=== PATIENT | female | born 1945 | race Caucasian/White ===

== ENCOUNTER 2021-11-09 09:58 | Day surgery (SDC) | payer MEDICARE, OTHER ==
[~2021-11-09] VITALS: Ht 167.6 cm; Wt 104.5 kg
[~2021-11-09 09:58] MED LIST: ACET325 PO; ASPI81CH PO; IRBHYD300; Levothyroxine200 MCG PO; METO100ER PO; MIRALAX17 GM PO; OMEPRAZOLE MAGN20 MG PO; Percocet 5-3251 EACH PO; TRIHYD253B; Triamterene W/1 EACH PO; Vitamin D400 UNI1
== END 2021-11-09 12:28 | disposition home or self-care (01) ==
LOC: ORSCSDS 09:58
PROVIDERS: Surgery
PROC: 0DBH8ZX Excision of Cecum, Via Natural or Artificial Opening Endoscopic, Diagnostic (ICD-10-PCS; principal; 2021-11-09 12:00)
PROC: 0DBN8ZX Excision of Sigmoid Colon, Via Natural or Artificial Opening Endoscopic, Diagnostic (ICD-10-PCS; principal; 2021-11-09 12:00)
PROC: 0DBL8ZX Excision of Transverse Colon, Via Natural or Artificial Opening Endoscopic, Diagnostic (ICD-10-PCS; principal; 2021-11-09 12:00)
DX: R93.5 Abnormal findings on diagnostic imaging of other abdominal regions, including retroperitoneum (principal); R10.31 Right lower quadrant pain; D12.0 Benign neoplasm of cecum; D12.3 Benign neoplasm of transverse colon; D12.5 Benign neoplasm of sigmoid colon; K63.5 Polyp of colon; I10 Essential (primary) hypertension; E03.9 Hypothyroidism, unspecified; Z79.899 Other long term (current) drug therapy
CPT/HCPCS: 88305; J0461; J2405; J2704; J7120

== ENCOUNTER → 2022-02-13 | Outpatient (CLI) | payer MEDICARE, OTHER | END | disposition home or self-care (01) | LOC: LAB SHORT 11:13 → PLD 11:13 | DX: D48.5 Neoplasm of uncertain behavior of skin (principal) | CPT/HCPCS: 88305 ==

== ENCOUNTER 2023-12-14 16:29 | Observation (INO) | payer MEDICARE, OTHER ==
[~2023-12-14] VITALS: Ht 167.6 cm; Wt 109.0 kg
[~2023-12-14 16:29] MED LIST changes: +ELIQUIS2.5 MG PO; +Toprol Xl25 MG PO
[2023-12-14 17:21] LABS: BASOPHILS ABSOLUTE AUTO 0.05 K/mm3 (0.00-0.23); BASOPHILS PERCENT AUTO 1 % (0-2); EOSINOPHILS PERCENT AUTO 3 % (0-6); Hematocrit 40.1 % (33.0-51.0); Hemoglobin 13.4 g/dL (11.5-16.0); IMMATURE GRAN ABSOLUTE AUTO 0.03 K/mm3 (0.00-0.10); IMMATURE GRAN PERCENT AUTO 1 % (0-1); LYMPHOCYTES ABSOLUTE AUTO 0.99 K/mm3 (0.84-5.20); LYMPHOCYTES PERCENT AUTO 17 % (21-46); MONOCYTES ABSOLUTE AUTO 0.51 K/mm3 (0.16-1.47); MONOCYTES PERCENT AUTO 9 % (4-13); Mean Corpuscular HGB 31.1 pg (26.0-34.0); Mean Corpuscular HGB Conc 33.4 g/dL (31.5-36.5); Mean Corpuscular Volume 93 fL (80-100); Mean Platelet Volume 10.8 fL (9.1-12.4); NEUTROPHILS ABSOLUTE AUTO 4.12 K/mm3 (1.96-9.15); NEUTROPHILS PERCENT AUTO 70 % (41-73); Platelet Count 176 K/mm3 (150-400); RDW Coefficient Variation 13.2 % (11.7-14.2); RDW Standard Deviation 45.3 fL (35.1-46.3); Red Blood Cell Count 4.31 M/mm3 (3.80-5.20)
[2023-12-14 17:47] LABS: Albumin, Blood 3.5 g/dL (3.4-5.0); Albumin/Globulin Ratio 1.2 (0.8-1.8); Bilirubin, Total 0.4 mg/dL (0.1-1.0); Bun/Creatinine Ratio 20.9 (12.0-20.0); Calcium, Blood 8.5 mg/dL (8.5-10.1); Creatinine, Blood 0.91 mg/dL (0.40-1.00); Globulin, Blood 2.9 g/dL (2.2-4.0); Potassium, Blood 3.2 mmol/L (3.5-5.5); Total Protein, Blood 6.4 g/dL (6.4-8.2)
[2023-12-14] MEDS ORDERED: Potassium Chloride 20 MEQ/15 ML UDC PO ONE (18:20)
[2023-12-14] MEDS ORDERED: Pantoprazole Sodium 40 MG Injection IV ONE (20:55)
[2023-12-14] MEDS ORDERED: Aspirin 81 MG Chew PO ONE (20:55)
[2023-12-14] MEDS ORDERED: Potassium Chloride 20 MEQ TabCR PO ONE (22:20)
[2023-12-14] MEDS ORDERED: Ondansetron HCl 2 MG / ML 2ML Vial IV PRN (22:20)
[2023-12-14] MEDS ORDERED: HydrALAZINE HCl 20 MG / ML 1ML Vial IV PRN (22:30)
[2023-12-14] MEDS ORDERED: Losartan Potassium 25 MG Tab PO SCH (22:54)
[2023-12-14] MEDS ORDERED: HydrALAZINE HCl 20 MG / ML 1ML Vial IV ONE (22:55)
[2023-12-15] MEDS ORDERED: Levothyroxine Sodium 0.1 MG Tab PO SCH (06:00)
[2023-12-15] MEDS ORDERED: Omeprazole 20 MG CapCR PO SCH (06:00)
[2023-12-15] MEDS ORDERED: Aspirin 81 MG Chew PO SCH (09:00)
[2023-12-15] MEDS ORDERED: HydroCHLOROthiazide 25 mg Tab PO SCH (09:00)
[2023-12-15] MEDS ORDERED: Metoprolol Succinate 25 MG TABCR PO SCH (09:00)
[2023-12-15] MEDS ORDERED: Triamter/HCthiazide 75/50 MG 1 TAB TAB PO SCH (09:00)
[2023-12-15] MEDS ORDERED: Apixaban 5 MG Tab PO SCH ×2 (09:00)
[2023-12-15 09:55] LABS: Calcium, Blood 8.8 mg/dL (8.5-10.1); Creatinine, Blood 0.87 mg/dL (0.40-1.00); Potassium, Blood 4.2 mmol/L (3.5-5.5)
[2023-12-15 15:57] VITALS: BP 150/53
[2023-12-15 19:05] VITALS: BP 133/44
--- NOTE | 2023-12-15 19:18 | NUR ---
SHIFT SUMMARY PT IS A&O X4. PT WAS COOROPERATIVE AND PLEASANT THROUGH SHIFT. PT WAS INDEPENDENT AND AMBULATED SELF TO THE TOILET. PT REPORTED NO CHEST PAIN THROUGH SHIFT. TELE: AT SINUS EBONY & 49 BPM. PT IV ON R AC IS SALINE LOCKED. CALL LIGHT IN REACH. PT CALLS APPROPRIATELY. PT WAITING FOR ECHOCARDIOGRAM.
--- NOTE | 2023-12-16 03:03 | NUR ---
SHIFT SUMMARY PT IS PLEASANT, A&O X4, AND COOPERATIVE WITH CARE. PT DENIES PAIN AND DISCOMFORT DURING THIS SHIFT. TELE: SINUS EBONY@50BPM. PT IS INDEPENDENT IN THE HOSPITAL ROOM, AMBULATES W/O ASSISTANCE. LUNGS CLEAR PER AUSCULTATION, BOWEL TONES ACTIVE. PT REPORTS NORMAL BM'S. EDEMA +1 NON PITTING LE'S BILATERALLY. ELEVATED LEGS WITH PILLOWS. NO ACUTE EVENTS OR DISTRESS NOTED/REPORTED DURING THIS SHIFT. BED AT THE LOWEST POSITION, CALL LIGHT WITHIN REACH. PT CALLS APPROPRIATELY.
[2023-12-16 03:54] VITALS: BP 148/63
[2023-12-16 07:24] VITALS: BP 169/66
[2023-12-16 14:58] VITALS: BP 169/85
[2023-12-16] MEDS ORDERED: LOSA25 PO (15:04)
[2023-12-16] MEDS ORDERED: ASPI81CH PO (15:04)
[2023-12-16] MEDS ORDERED: HYDCHL50 PO (15:04)
[2023-12-16] MEDS ORDERED: ELIQUIS5 M2 PO (15:12)
--- NOTE | 2023-12-16 16:52 | NUR ---
DISCHARGE PT DISCHARGED AT 1600. EDUCATED ON NEW MEDS AND FOLLOW UP INSTRUCTIONS NEEDED. PT DENIES NO OTHER QUESTIONS AT THIS TIME. IV REMOVED & INTACT. NO CHANGES IN ASSESSMENT PRIOR TO DC. ECHO COMPLETED THIS SHIFT PRIOR TO DC. WHEELED OUT BY AIDE & DRIVEN HOME BY FRIEND.
== END 2023-12-16 16:01 | disposition home or self-care (01) ==
LOC: ER 16:29 → ERHOLD 16:30 → MEDS 12-15 15:43
PROVIDERS: Emergency Medicine; Internal Medicine; ADMIT Family Medicine
DX: I11.0 Hypertensive heart disease with heart failure (principal); I50.33 Acute on chronic diastolic (congestive) heart failure; I16.0 Hypertensive urgency; I48.0 Paroxysmal atrial fibrillation; E03.9 Hypothyroidism, unspecified; K21.9 Gastro-esophageal reflux disease without esophagitis; Z79.82 Long term (current) use of aspirin; Z79.890 Hormone replacement therapy; Z79.899 Other long term (current) drug therapy; Z88.8 Allergy status to other drugs, medicaments and biological substances
CPT/HCPCS: 71046; 80048; 80053; 84484; 85025; 93005; 93010; 93306; 96374; 96375; 99285-25; A9270; G0378; J0360; J2405; J2470

== ENCOUNTER 2024-02-28 12:04 | Inpatient (IN) | payer MEDICARE, OTHER ==
[~2024-02-28] VITALS: Ht 167.6 cm; Wt 104.1 kg
[~2024-02-28 12:04] MED LIST changes: +ELIQUIS5 M2 PO; +HYDCHL50 PO; +LOSA25 PO
[2024-02-28] MEDS ORDERED: Nitroglycerin 1 INCH/GM PKT TOP ONE (13:10)
[2024-02-28] MEDS ORDERED: Aspirin 81 MG Chew PO ONE (13:10)
[2024-02-28 13:26] LABS: BASOPHILS ABSOLUTE AUTO 0.03 K/mm3 (0.00-0.23); BASOPHILS PERCENT AUTO 1 % (0-2); EOSINOPHILS ABSOLUTE AUTO 0.18 K/mm3 (0.00-0.68); EOSINOPHILS PERCENT AUTO 3 % (0-6); Hematocrit 43.6 % (33.0-51.0); Hemoglobin 14.8 g/dL (11.5-16.0); IMMATURE GRAN ABSOLUTE AUTO 0.03 K/mm3 (0.00-0.10); IMMATURE GRAN PERCENT AUTO 1 % (0-1); LYMPHOCYTES ABSOLUTE AUTO 0.89 K/mm3 (0.84-5.20); LYMPHOCYTES PERCENT AUTO 16 % (21-46); MONOCYTES ABSOLUTE AUTO 0.45 K/mm3 (0.16-1.47); MONOCYTES PERCENT AUTO 8 % (4-13); Mean Corpuscular HGB 31.3 pg (26.0-34.0); Mean Corpuscular HGB Conc 33.9 g/dL (31.5-36.5); Mean Corpuscular Volume 92 fL (80-100); Mean Platelet Volume 10.7 fL (9.1-12.4); NEUTROPHILS ABSOLUTE AUTO 3.94 K/mm3 (1.96-9.15); NEUTROPHILS PERCENT AUTO 71 % (41-73); Platelet Count 175 K/mm3 (150-400); RDW Coefficient Variation 13.3 % (11.7-14.2); RDW Standard Deviation 45.1 fL (35.1-46.3); Red Blood Cell Count 4.73 M/mm3 (3.80-5.20); White Blood Cell Count 5.52 K/mm3 (4.00-11.30)
[2024-02-28 13:37] LABS: Albumin, Blood 3.8 g/dL (3.4-5.0); Albumin/Globulin Ratio 1.4 (0.8-1.8); Bun/Creatinine Ratio 10.6 (12.0-20.0); Creatinine, Blood 0.94 mg/dL (0.40-1.00); Globulin, Blood 2.8 g/dL (2.2-4.0); Potassium, Blood 3.3 mmol/L (3.5-5.5); Total Protein, Blood 6.6 g/dL (6.4-8.2)
[2024-02-28 14:14] LABS: Influenza A, PCR NEGATIVE (NEGATIVE); Influenza B, PCR NEGATIVE (NEGATIVE); Resp Syncytial Virus, PCR NEGATIVE (NEGATIVE); SARS-Cov-2 (COVID-19) PCR, MMC NEGATIVE (NEGATIVE)
[2024-02-28] MEDS ORDERED: Furosemide 10 MG/ML 4ML Vial IV ONE (15:55)
[2024-02-28] MEDS ORDERED: HydrALAZINE HCl 20 MG / ML 1ML Vial IV ONE ×2 (15:55→16:30)
[2024-02-28] MEDS ORDERED: Acetaminophen 500 MG Tab PO ONE (17:50)
[2024-02-28] MEDS ORDERED: Acetaminophen 325 MG TABLET PO PRN (18:00)
[2024-02-28] MEDS ORDERED: Ondansetron HCl 2 MG / ML 2ML Vial IV PRN (18:00)
[2024-02-28] MEDS ORDERED: FLU VACC TS2024-25(6MOS UP)/PF 45 MCG/0.5 ML SYRINGE IM SCH (18:00)
[2024-02-28] MEDS ORDERED: Potassium Chloride 20 MEQ TabCR PO ONE ×2 (18:00→20:40)
[2024-02-28] MEDS ORDERED: Potassium Chl 20MEQ/Water100ML 100 ML IV STA (18:02)
[2024-02-28] MEDS ORDERED: Labetalol HCL 5 MG/ML 4ML Injection (Single Dose) IV PRN (18:05)
[2024-02-28] MEDS ORDERED: Apixaban 5 MG Tab PO SCH (21:00)
[2024-02-28] MEDS ORDERED: Losartan Potassium 50 MG Tab PO SCH (21:00)
[2024-02-28] MEDS ORDERED: Metoclopramide HCl 5MG / ML 2ML Vial IV PRN (21:20)
[2024-02-28 21:28] VITALS: BP 142/88
[2024-02-29 05:15] VITALS: BP 151/65
[2024-02-29 05:35] LABS: Calcium, Blood 9.4 mg/dL (8.5-10.1); Potassium, Blood 3.5 mmol/L (3.5-5.5)
--- NOTE | 2024-02-29 05:37 | NUR ---
Shift Summary Pt admitted to this floor from ED for chest pain. She has been having increasing HTN, SoB and feeling unwell for the last week. While in the ED they applied a nitro patch to relieve chest pain. Her potassium in ED was 3.3 and she rcvd IV and PO replacement. She also rcvd Lasix in the ED. Per report she had a syncopal episode in the ED where she got dizzy and her BP was 80/50. She has had no chest pain since arriving to this unit, she did have a headache which she rcvd Tylenol for. She is AOx4, independent with 1 SBA d/t syncope, no skin issues. She is here for potential cardiac workup.
[2024-02-29] MEDS ORDERED: Levothyroxine Sodium 0.1 MG Tab PO SCH (06:00)
[2024-02-29] MEDS ORDERED: Omeprazole 20 MG CapCR PO SCH (06:00)
[2024-02-29 07:24] VITALS: BP 155/86
[2024-02-29] MEDS ORDERED: Polyethylene Glycol 3350 17 gm PO PRN (07:50)
[2024-02-29] MEDS ORDERED: Metoprolol Succinate 25 MG TABCR PO SCH (09:00)
[2024-02-29] MEDS ORDERED: Furosemide 10 MG/ML 4ML Vial IV SCH (09:00)
[2024-02-29] MEDS ORDERED: Aspirin 81 MG Chew PO SCH (09:00)
[2024-02-29] MEDS ORDERED: Spironolactone 12.5 MG TAB PO SCH (11:30)
[2024-02-29 14:59] VITALS: BP 151/96
--- NOTE | 2024-02-29 17:22 | NUR ---
SHIFT SUMMARY MS WARREN HAS LEFT CHEST PAIN THAT LASTS FOR A FEW SECONDS OCCASIONALLY, THEN IS GONE. SHORTNESS OF BREATH ON SMALL EXERTION; EATING MEALS, WALKING TO BATHROOM. SHE DENIES DIZZYNESS WHEN WALKING TO THE BATHROOM. SUPPORTIVE FAMILY AT BEDSIDE. SHE HAD PART ONE OF STRESS TEST DONE TODAY. SHE KNOWS NOT TO HAVE CAFFEINE AND THAT SHE CAN ONLY DRINK WATER AFTER MIDNIGHT FOR 2ND PART OF STRESS TEST IN THE MORNING. ON TELEMETRY IN AFIB/AFLUTTER. NO CALLS FROM FINGER GRIP MACHINE OPERATOR. MS WARREN LIVES ALONE, HER GRANDSON LIVES LOCALLY AND HER DAUGHTER LIVES IN [place]. BED LOW, CALL LIGHT IN REACH.
[2024-02-29 19:59] VITALS: BP 136/59
[2024-02-29] MEDS ORDERED: Docusate Sodium/Senna 1 Tab PO SCH (21:00)
--- NOTE | 2024-03-01 04:52 | NUR ---
SHIFT SUMMARY PATIENT SLEPT IN LONG INTERVALS, NEVER CALLED. HAD TO WAKE HER FOR SCHEDULED MEDS. TELE Jose GÓMEZ @ 55.
[2024-03-01 05:05] VITALS: BP 149/84
[2024-03-01] MEDS ORDERED: Caffeine Citrated 60 MG/3 ML Vial ONE (07:11)
[2024-03-01] MEDS ORDERED: Regadenoson 0.4 MG/5 ML SYRINGE ONE (07:11)
[2024-03-01 07:15] VITALS: BP 178/93
[2024-03-01 12:36] VITALS: BP 146/84
[2024-03-01 15:59] VITALS: BP 151/85
--- NOTE | 2024-03-01 17:12 | NUR ---
SHIFT SUMMARY: PT AOX4 HAD STRESS TEST THIS MORNING WITH UNREMARKABLE RESULTS. PT AMBULATED TO SHOWER AND BACK TO BED WITH MINIMAL ASSISTANCE FROM AID. HAS BEEN EATING WELL AND TOLERATING DIET. HAD FAMILY AT BEDSIDE MOST OF THE DAY. COMPLAINED OF CHESTPAIN, GIVEN TYLENOL AND ZOFRAN AND PT STATES THE IV ZOFRAN MADE THE PAIN GO AWAY. PT ADMITTED FROM OBSERVATION FOR NOW. VERY PLEASANT AND IN GOOD MOOD. TOLERATING TREATMENT WELL. PT RESTING IN BED, BED AT LOWEST POSITION, AND CALL LIGHT IN REACH. CONTINUING CARE.
[2024-03-01 20:57] VITALS: BP 134/73
[2024-03-02 03:58] VITALS: BP 127/66
--- NOTE | 2024-03-02 06:37 | NUR ---
NET UI DEVELOPER SUMMARY NO ACUTE EVENTS OVERNIGHT. PT HAS DENIED CHEST PAIN OR PRESSURE ON EVERY ENCOUNTER. ALSO DENIES SOB.
[2024-03-02 07:17] VITALS: BP 138/87
[2024-03-02] MEDS ORDERED: Spironolactone 25 MG Tab PO SCH (09:00)
--- NOTE | 2024-03-02 09:00 | NUR ---
pt laying in bed, daughter at bedside, a/ox4, states she has a h/a, lungs are clear t/o, resp even and unlabored, no cough noted, hrr, tele in place running aflutter per monitor, see strip, no edema noted, ppp+2, cap refill< 3 sec, vs stable, afebrile, piv to lac site is clear and patent, btx4, abd flat soft nontender, voids without diff, reports reg bm's, skin has rash to sonu area, otherwise c/w/d, edna steele, call light in reach.
--- NOTE | 2024-03-02 11:30 | NUR ---
pt complaining of a h/a 9/10, tylenol and cool washcloth to head given, family at bedside. call light in reach.
--- NOTE | 2024-03-02 12:46 | NUR ---
nurse called to room, pt states she's having nausea, zofran given with good relief, states her head isn't better after tylenol, ice pack given, family at bedside, call light in reach.
[2024-03-02 16:37] VITALS: BP 126/62
--- NOTE | 2024-03-02 18:26 | NUR ---
pt has had a h/a most of the day, states it's better than this morning, ice pack helped, slept most of the day, family at bedside, call light in reach.
[2024-03-02 19:12] VITALS: BP 136/70
[2024-03-03 04:37] VITALS: BP 115/73
--- NOTE | 2024-03-03 06:43 | NUR ---
SHIFT SUMMARY: Pt is admitted for chest pain and is a full code. Is alert and able to make needs known. ADLs has been mostly IND with the staff checking for rounds. Denies pain or discomfort when asked.
[2024-03-03 06:56] LABS: Albumin, Blood 3.3 g/dL (3.4-5.0); Anion Gap 8 mmol/L (3-11); Blood Urea Nitrogen 19 mg/dL (8-24); Bun/Creatinine Ratio 18.6 (12.0-20.0); CO2, Blood 30 mmol/L (21-32); Calcium, Blood 10.1 mg/dL (8.5-10.1); Chloride, Blood 108 mmol/L (98-108); Creatinine, Blood 1.02 mg/dL (0.40-1.00); Glomerular Filtration Rate 56 (60-); Glucose, Blood 114 mg/dL (70-99); Magnesium, Blood 1.8 mg/dL (1.6-2.4); Phosphorus, Blood 3.6 mg/dL (2.5-4.9); Potassium, Blood 3.6 mmol/L (3.5-5.5); Sodium, Blood 142 mmol/L (136-145)
[2024-03-03 07:14] VITALS: BP 130/81
[2024-03-03] MEDS ORDERED: Furosemide 20 MG Tab PO SCH (09:00)
[2024-03-03] MEDS ORDERED: SPIR25 PO (12:13)
--- NOTE | 2024-03-03 12:30 | NUR ---
DISCHARGE NOTE PT DISCHARGED TO HOME, PICKED UP BY HER GRANDSON. IV REMOVED. TELE RETURNED. MEDICATIONS FAXED TO THE PHARMACY OF HER CHOICE. PERSONAL BELONGINGS RETURNED. DISCHARGE PLAN REVIEWED WITH THE PT.
== END 2024-03-03 12:31 | disposition home or self-care (01) | DRG 291 ==
LOC: ER 12:04 → MEDS 12:05
PROVIDERS: Internal Medicine; Nurse Practitioner Acute Care; Physician Assistant; ADMIT Internal Medicine
DX: I11.0 Hypertensive heart disease with heart failure (principal); I50.33 Acute on chronic diastolic (congestive) heart failure; K21.9 Gastro-esophageal reflux disease without esophagitis; I16.0 Hypertensive urgency; I48.0 Paroxysmal atrial fibrillation; E03.9 Hypothyroidism, unspecified; R07.89 Other chest pain; Z88.8 Allergy status to other drugs, medicaments and biological substances; Z79.82 Long term (current) use of aspirin; Z79.01 Long term (current) use of anticoagulants; Z79.899 Other long term (current) drug therapy; Z90.722 Acquired absence of ovaries, bilateral; Z98.890 Other specified postprocedural states; Z90.49 Acquired absence of other specified parts of digestive tract; Z79.890 Hormone replacement therapy
CPT/HCPCS: 0241U; 36415; 71046; 78452; 80048; 80053; 80069; 83735; 83880; 84484; 85025; 85379; 93005; 93010; 93017; 94760; 96374; 96375; 96376; 99285-25; A9270; A9500; G0378; J0360; J0706; J1940; J2405; J2765; J2785; J3480